=== PATIENT | male | born 1985 | race Caucasian/White ===

== ENCOUNTER 2021-06-10 18:18 | Emergency (ER) | payer OTHER ==
[~2021-06-10] VITALS: Ht 177.8 cm; Wt 72.6 kg
[2021-06-10 18:27] VITALS: BP_SYST 116
[2021-06-10 19:35] VITALS: BP_SYST 116
[2021-06-10] MEDS: IBUPROFEN 600 MG TABLET PO ONE (19:35)
== END 2021-06-10 19:35 | disposition home or self-care (01) ==
LOC: SED 18:18
DX: E86.0 Dehydration (principal); F12.90 Cannabis use, unspecified, uncomplicated; F17.290 Nicotine dependence, other tobacco product, uncomplicated; Z71.6 Tobacco abuse counseling
CPT/HCPCS: 93005; 99283